=== PATIENT | male | born 1955 | race Caucasian/White ===

== ENCOUNTER 2017-01-19 09:22 | Inpatient (IN) | payer OTHER ==
[2017-01-19 10:32] VITALS: BMI 24.0
--- NOTE | 2017-01-19 13:29 | HP ---
CIWA Score - CIWA Score Nausea/Vomitin-No Nausea/No Vomiting Muscle Tremors: 4-Moderate,w/Arms Extend Anxiety: 4-Mod. Anxious/Guarded Agitation: 3 Paroxysmal Sweats: 1-Minimal Palms Moist Orientation: 0-Oriented Tacttile Disturbances: 0-None Auditory Disturbances: 0-None Visual Disturbances: 0-None Headache: 1-Very Mild CIWA-Ar Total Score: 13 Admission ROS BHS - HPI Chief Complaint: DETOX TX FOR ALCOHOL WITHDRAWAL SX Allergies/Adverse Reactions: Allergies Allergy/AdvReac Type Severity Reaction Status Date / Time No Known Allergies Allergy Verified 01/19/17 11:44 History of Present Illness: 43 Y/O H/M WITH A HX OF ALCOHOL DEPENDENCE SEEKING DETOX TX Exam Limitations: No Limitations - Ebola screening Have you traveled outside of the country in the last 21 days: No (N) Have you had contact with anyone from an Ebola affected area: No Have you been sick,other than usual withdrawal symptoms: No Do you have a fever: No - Review of Systems Constitutional: Loss of Appetite, Changes in sleep, Unintentional Wgt. Loss EENT: reports: Blurred Vision, Dental Problems (MISSING TEETH) Respiratory: reports: Shortness of Breath (ASTHMA), Wheezing Cardiac: reports: Lightheadedness GI: reports: No Symptoms Reported : reports: No Symptoms Reported Musculoskeletal: reports: No Symptoms Reported Integumentary: reports: No Symptoms Reported Neuro: reports: Headache, Tremors, Unsteady Gait Endocrine: reports: No Symptoms Reported Hematology: reports: No Symptoms Reported Psychiatric: reports: Orientated x3, Anxious, Depressed Other Systems: Reviewed and Negative Patient History - Patient Medical History Hx Asthma: Yes (MDI) Hx Chronic Obstructive Pulmonary Disease (COPD): No Hx Cardiac Disorders: No Hx Hypertension: No Hx Hypercholesterolemia: No HX Cerebrovascular Accident: No Hx Seizures: No Hx Diabetes: No Hx Gastrointestinal Disorders: No Hx Genitourinary Disorders: No Hx Sexually Transmitted Disorders: No (DENIES) Hx Renal Disease (ESRD): No Hx Thyroid Disease: No Hx Human Immunodeficiency Virus (HIV): No (NEGATIVE HX) Hx Hepatitis C: No Hx Depression: Yes (ON LEXAPRO 10 MG) Hx Suicide Attempt: No (DENIES) Hx Schizophrenia: No - Patient Surgical History Past Surgical History: No Hx Neurologic Surgery: No Hx Cataract Extraction: No Hx Cardiac Surgery: No Hx Lung Surgery: No Hx Breast Surgery: No Hx Breast Biopsy: No Hx Abdominal Surgery: No Hx Appendectomy: No Hx Cholecystectomy: No Hx Genitourinary Surgery: No Hx Orthopedic Surgery: No Anesthesia Reaction: No - PPD History Previous Implant?: Yes Documented Results: Positive w/o proof Implanted On Prior [facility] Admission?: No Results: CXR TBD PPD to be Administered?: No - Reproductive History Patient is a Female of Child Bearing Age (11 -55 yrs old): No (MALE) - Smoking Cessation Smoking history: Current every day smoker Have you smoked in the past 12 months: Yes Aproximately how many cigarettes per day: 20 Hx Chewing Tobacco Use: No Initiated information on smoking cessation: Yes 'Breaking Loose' booklet given: 01/19/17 - Substance & Tx. History Hx Alcohol Use: Yes (BEER/VODKA) Hx Substance Use: No (DENIES) Substance Use Type: Alcohol Hx Substance Use Treatment: Yes - Substances Abused Alcohol-beer/vodka Route: Oral Frequency: Daily Amount used: 4 (24 oz.)/4 pts. Age of first use: 15 Date of Last Use: 01/19/17 Family Disease History - Family Disease History Family History: Denies Admission Physical Exam BHS - Vital Signs Vital Signs: Vital Signs - 24 hr 01/19/17 10:30 Temperature 98.8 F Pulse Rate 100 H Respiratory 18 Rate Blood Pressure 138/87 - Physical General Appearance: Yes: Moderate Distress, Irritable, Anxious HEENTM: Yes: EOMI, Normocephalic, KENJI, Pharynx Normal Respiratory: Yes: Chest Non-Tender, Lungs Clear, Normal Breath Sounds, No Respiratory Distress Neck: Yes: No masses,lesions,Nodules, Supple, Trachea in good position Breast: Yes: Breast Exam Deferred Cardiology: Yes: Regular Rhythm, Regular Rate, S1, S2 Abdominal: Yes: Normal Bowel Sounds, Non Tender, Flat Genitourinary: Yes: Other (N/C) Back: Yes: Within Normal Limits Musculoskeletal: Yes: full range of Motion, Gait Steady Extremities: Yes: Normal Range of Motion, Non-Tender Neurological: Yes: park warden II-XII NML intact, Fully Oriented, Alert, Motor Strength 5/5 Integumentary: Yes: Dry, Warm Lymphatic: Yes: Within Normal Limits - Diagnostic (1) Alcohol dependence with uncomplicated withdrawal Current Visit: Yes Status: Acute (2) Asthma Current Visit: Yes Status: Acute Qualifiers: Asthma severity: mild Asthma persistence: unspecified Asthma complication type: uncomplicated Qualified Code(s): J45.909 - Unspecified asthma, uncomplicated Cleared for Admission BHS - Detox or Rehab [facility] Level of Care: Medically Managed Detox Regimen/Protocol: Librium BHS Breath Alcohol Content Breath Alcohol Content: 0.065 Urine Drug Screen - Results Drug Screen Negative: No Urine Drug Screen Results: BZO-Benzodiazepines
[2017-01-19] MEDS ORDERED: IBUPROFEN 400 MG TABLET (FP) PO PRN (13:36)
[2017-01-19] MEDS ORDERED: hydrOXYzine PAMOATE 25 MG CAPSULE (FP) PO PRN (13:36)
[2017-01-19] MEDS ORDERED: MAGNESIUM HYDROX 2400MG/30ML ORAL SUSPENSION 30 ML CUP PO PRN (13:36)
[2017-01-19] MEDS ORDERED: MAG HYDROX/AL HYDROX/SIMETH 30 ML UNIT-DOSE CUP PO PRN (13:36)
[2017-01-19] MEDS ORDERED: chlordiazePOXIDE HCL 25 MG CAPSULE PO PRN (13:36)
[2017-01-19] MEDS ORDERED: MENTHOL/PHENOL 1 EACH UD MM PRN (13:36)
[2017-01-19] MEDS ORDERED: guaiFENesin/D-METHORPHAN HB 10 ML UNIT-DOSE CUPS PO PRN (13:36)
[2017-01-19] MEDS ORDERED: ACETAMINOPHEN 325 MG TABLET (FP) PO PRN (13:36)
[2017-01-19] MEDS ORDERED: NICOTINE POLACRILEX 4 MG GUM BUC PRN (13:36)
[2017-01-19] MEDS ORDERED: P-EPHED 60MG/TRIPROLIDI 2.5MG TABLET PO PRN (13:36)
[2017-01-19] MEDS ORDERED: LOPERAMIDE HCL 2 MG CAPSULE PO PRN (13:36)
[2017-01-19] MEDS ORDERED: MAGNESIUM CITRATE 300 ML BOTTLE PO PRN (13:36)
[2017-01-19] MEDS ORDERED: ALBUTEROL SO4 18 GM HFA INHALER IH PRN (13:38)
[2017-01-19] MEDS ORDERED: chlordiazePOXIDE HCL 25 MG CAPSULE PO ONE (14:21)
[2017-01-19] MEDS: NICOTINE 21 MG/24 HOURS TOPICAL PATCH TD SCH (15:59)
[2017-01-19] MEDS: chlordiazePOXIDE HCL 25 MG CAPSULE PO SCH ×2 (17:15→22:15)
[2017-01-19 17:48] LABS: MCH 27.1 pg (25.7-33.7); MCHC 32.3 g/dl (32.0-35.9); MEAN CELL VOLUME 83.8 fl (80-96); MEAN PLT VOLUME 8.4 fl (7.5-11.1); PLATELET COUNT 266 K/MM3 (134-434); RDW 16.4 % (11.9-15.9); WHITE BLOOD COUNT 7.3 K/mm3 (4.0-10.0)
[2017-01-19 18:04] LABS: ALK PHOS 49 U/L (45-117); ANION GAP 13 (8-16); BILIRUBIN,TOTAL 0.8 mg/dL (0.2-1.0); CALCIUM 9.4 mg/dL (8.5-10.1); CO2 26 mmol/L (21-32); CREATININE 1.1 mg/dL (0.7-1.3); GLUCOSE,RANDOM 75 mg/dL (74-106); SGOT/AST 36 U/L (15-37); SGPT/ALT 33 U/L (12-78); TOT PROT 7.6 g/dl (6.4-8.2)
[2017-01-19 18:04] LABS: URINE APPEARANCE CLEAR; URINE BILIRUBIN NEGATIVE (NEGATIVE); URINE BLOOD NEGATIVE (NEGATIVE); URINE COLOR LTYELLOW; URINE GLUCOSE (UA) NEGATIVE (NEGATIVE); URINE KETONE NEGATIVE (NEGATIVE); URINE NITRITE NEGATIVE (NEGATIVE); URINE PROTEIN NEGATIVE (NEGATIVE); URINE UROBILINOGEN NEGATIVE mg/dL (0.2-1.0)
[2017-01-19 18:45] LABS: SICKLE CELL SCREEN NEGATIVE (NEGATIVE)
[2017-01-19 21:53] LABS: URINE LEUK ESTERASE Negative (NEGATIVE)
[2017-01-19] MEDS: THIAMINE HCL 100 MG TABLET (FP) PO SCH (22:15)
[2017-01-20] MEDS: chlordiazePOXIDE HCL 25 MG CAPSULE PO SCH ×4 (05:32→22:07)
--- NOTE | 2017-01-20 09:46 | EKG ---
Test Reason : Blood Pressure : / mmHG Vent. Rate : 083 BPM Atrial Rate : 083 BPM P-R Int : 146 ms QRS Dur : 080 ms QT Int : 352 ms P-R-T Axes : 063 017 039 degrees QTc Int : 413 ms NORMAL SINUS RHYTHM NORMAL ECG NO PREVIOUS ECGS AVAILABLE Confirmed by GAYE COOPER, DELL ([id number]) on 01/20/2017 9:46:22 AM Referred By: Confirmed By:DELL HUIZAR MD
[2017-01-20] MEDS ORDERED: PRENATAL VITAMINS W/ FOLIC ACID TABLET (FP) PO SCH (10:00)
[2017-01-20] MEDS ORDERED: ESCITALOPRAM OXALATE 10 MG TABLET (FP) PO SCH ×2 (10:00→13:45)
[2017-01-20] MEDS: NICOTINE 21 MG/24 HOURS TOPICAL PATCH TD SCH ×2 (10:02→10:36)
--- NOTE | 2017-01-20 10:35 | PN ---
[facility] CIWA - CIWA Score Nausea/Vomitin-No Nausea/No Vomiting Muscle Tremors: 4-Moderate,w/Arms Extend Anxiety: 4-Mod. Anxious/Guarded Agitation: 4-Moderately Restless Paroxysmal Sweats: 1-Minimal Palms Moist Orientation: 0-Oriented Tacttile Disturbances: 3-Moderate Itch/Numb/Burn Auditory Disturbances: 0-None Visual Disturbances: 0-None Headache: 0-None Present CIWA-Ar Total Score: 16 BHS Progress Note (SOAP) Subjective: ANXIETY,SWEATS,TREMORS. Objective: 01/20/17 10:34 Vital Signs Temperature 97.1 F L 01/20/17 09:48 Pulse Rate 84 01/20/17 09:48 Respiratory Rate 16 01/20/17 09:48 Blood Pressure 111/68 01/20/17 09:48 O2 Sat by Pulse Oximetry (%) Laboratory Last Values WBC 7.3 K/mm3 (4.0-10.0) 01/19/17 15:00 RBC 5.31 M/mm3 (4.00-5.60) 01/19/17 15:00 Hgb 14.4 GM/dL (11.7-16.9) 01/19/17 15:00 Hct 44.5 % (35.4-49) 01/19/17 15:00 MCV 83.8 fl (80-96) 01/19/17 15:00 MCH 27.1 pg (25.7-33.7) 01/19/17 15:00 MCHC 32.3 g/dl (32.0-35.9) 01/19/17 15:00 RDW 16.4 % (11.9-15.9) H 01/19/17 15:00 Plt Count 266 K/MM3 (134-434) 01/19/17 15:00 MPV 8.4 fl (7.5-11.1) 01/19/17 15:00 Sickle Cell Screen Negative (NEGATIVE) 01/19/17 15:00 Sodium 139 mmol/L (136-145) 01/19/17 15:00 Potassium 4.3 mmol/L (3.5-5.1) 01/19/17 15:00 Chloride 100 mmol/L (98-107) 01/19/17 15:00 Carbon Dioxide 26 mmol/L (21-32) 01/19/17 15:00 Anion Gap 13 (8-16) 01/19/17 15:00 BUN 10 mg/dL (7-18) 01/19/17 15:00 Creatinine 1.1 mg/dL (0.7-1.3) 01/19/17 15:00 Creat Clearance w eGFR > 60 (>60) 01/19/17 15:00 Random Glucose 75 mg/dL (74-106) 01/19/17 15:00 Calcium 9.4 mg/dL (8.5-10.1) 01/19/17 15:00 Total Bilirubin 0.8 mg/dL (0.2-1.0) 01/19/17 15:00 AST 36 U/L (15-37) 01/19/17 15:00 ALT 33 U/L (12-78) 01/19/17 15:00 Alkaline Phosphatase 49 U/L (45-117) 01/19/17 15:00 Total Protein 7.6 g/dl (6.4-8.2) 01/19/17 15:00 Albumin 4.0 g/dl (3.4-5.0) 01/19/17 15:00 Urine Color Ltyellow 01/19/17 15:30 Urine Appearance Clear 01/19/17 15:30 Urine pH 6.0 (5.0-8.0) 01/19/17 15:30 Ur Specific [place] 1.013 (1.001-1.035) 01/19/17 15:30 Urine Protein Negative (NEGATIVE) 01/19/17 15:30 Urine Glucose (UA) Negative (NEGATIVE) 01/19/17 15:30 Urine Ketones Negative (NEGATIVE) 01/19/17 15:30 Urine Blood Negative (NEGATIVE) 01/19/17 15:30 Urine Nitrite Negative (NEGATIVE) 01/19/17 15:30 Urine Bilirubin Negative (NEGATIVE) 01/19/17 15:30 Urine Urobilinogen Negative mg/dL (0.2-1.0) 01/19/17 15:30 Ur Leukocyte Esterase Negative (NEGATIVE) 01/19/17 15:30 RPR Titer Nonreactive (NONREACTIVE) 01/19/17 15:00 Assessment: 01/20/17 10:34 WITHDRAWAL SX Plan: CONTINUE DETOX
[2017-01-20] MEDS ORDERED: FLU VACCINE QUAD 60 MCG/0.5 ML (MDV 17-18) IM ONE (12:00)
--- NOTE | 2017-01-20 13:25 | CONSULT ---
[facility] Psychiatric Consult - Data Date of interview: 01/20/17 Admission source: [facility] Identifying data: First admission to [facility] for this 43 y/o male seeking detox treatment on for alcohol dependence.Patient is ,a father of two,domiciled and employed. Substance Abuse History: Confirmed by patient in this interview. Smoking history: Current every day smoker. Have you smoked in the past 12 months: Yes. Aproximately how many cigarettes per day: 20. Hx Chewing Tobacco Use: No. Initiated information on smoking cessation: Yes. 'Breaking Loose' booklet given : 01/19/17. - Substance & Tx. History. Hx Alcohol Use: Yes (BEER/VODKA). Hx Substance Use: No (DENIES). Substance Use Type: Alcohol. Hx Substance Use Treatment: Yes. - Substances Abused. Alcohol-beer/vodka. Route: Oral. Frequency: Daily. Amount used: 4 (24 oz.)/4 pts. Age of first use: 15. Date of Last Use: 01/19/17 Medical History: Bronchial asthma. Psychiatric History: Patient admits to a history of four psychiatric hospitalizations.Known to [email or web address] and [facility].Diagnosed with MDD and prescribed lexapro 10 mg/day (OPD care at [facility] mental health clinic).Mr Funk denies history of suicide attempts. Physical/Sexual Abuse/Trauma History: Patient denies. Additional Comment: Urine Drug Screen Results: BZO-Benzodiazepines.Noted. Mental Status Exam - Mental Status Exam Alert and Oriented to: Time, Place, Person Cognitive Function: Good Patient Appearance: Well Groomed Mood: Withdrawn, Hopeful, Euthymic Affect: Appropriate, Normal Range Patient Behavior: Fatigued, Cooperative Speech Pattern: Clear (in greek), Appropriate Voice Loudness: Normal Thought Process: Intact, Goal Oriented Thought Disorder: Not Present Hallucinations: Denies Suicidal Ideation: Denies Homicidal Ideation: Denies Insight/Judgement: Poor Sleep: Well Appetite: Good Muscle strength/Tone: Normal Gait/Station: Normal Psychiatric Findings - Problem List ([place] 1, 2,3) (1) Alcohol dependence with uncomplicated withdrawal Current Visit: Yes Status: Acute (2) Nicotine dependence Current Visit: Yes Status: Acute (3) Substance induced mood disorder Current Visit: Yes Status: Acute (4) Depressive disorder Current Visit: Yes Status: Chronic Comment: Self-report.On medications.Followed at [facility] OPD. - Initial Treatment Plan Initial Treatment Plan: Psychoeducation.Detoxification.Support.Lexapro 10 mg po daily.Side effects/benefits discussed with patient.He agrees with this careplan.Observation.
[2017-01-20] MEDS: THIAMINE HCL 100 MG TABLET (FP) PO SCH (22:07)
[2017-01-21] MEDS: chlordiazePOXIDE HCL 25 MG CAPSULE PO SCH (05:08)
[2017-01-21 08:59] VITALS: BP 107/70; PULSE 78; TEMP 95.8
--- NOTE | 2017-01-21 12:50 | DS ---
[facility] Detox Discharge Summary Admission Date: 01/19/17 Discharge Date: 01/21/17 - History Present History: Alcohol Dependence Additional Comments: PATIENT HAD PERSONAL ISSUE TO DEAL WITH AND DOES NOT WISH TO STAY TO COMPLETE DETOX REGIMEN. RISKS OF LEAVING DETOX UNIT PRIOR TO COMPLETION OF DETOX REGIMEN EXPLAINED TO PATIENT. PATIENT ADVISED TO GO IMMEDIATELY TO NEAREST ER SHOULD ANY INTOLERABLE DETOX SYMPTOMS DEVELOP AT ANY TIME. PATIENT LEFT DETOX UNIT IN STABLE MEDICAL CONDITION. Pertinent Past History: Depression, Nicotine Dependence, Asthma. - Physical Exam Results Vital Signs: Vital Signs Temperature 95.8 F L 01/21/17 08:59 Pulse Rate 78 01/21/17 08:59 Respiratory Rate 18 01/21/17 08:59 Blood Pressure 107/70 01/21/17 08:59 O2 Sat by Pulse Oximetry (%) Pertinent Admission Physical Exam Findings: WITHDRAWAL SYMPTOMS. Laboratory Tests 01/19/17 01/19/17 01/19/17 15:00 15:00 15:00 WBC 7.3 RBC 5.31 Hgb 14.4 Hct 44.5 MCV 83.8 MCH 27.1 MCHC 32.3 RDW 16.4 H Plt Count 266 MPV 8.4 Sickle Cell Screen Negative Sodium 139 Potassium 4.3 Chloride 100 Carbon Dioxide 26 Anion Gap 13 BUN 10 Creatinine 1.1 Creat Clearance w eGFR > 60 Random Glucose 75 Calcium 9.4 Total Bilirubin 0.8 AST 36 ALT 33 Alkaline Phosphatase 49 Total Protein 7.6 Albumin 4.0 Urine Color Urine Appearance Urine pH Ur Specific [place] Urine Protein Urine Glucose (UA) Urine Ketones Urine Blood Urine Nitrite Urine Bilirubin Urine Urobilinogen Ur Leukocyte Esterase RPR Titer Nonreactive 01/19/17 15:30 WBC RBC Hgb Hct MCV MCH MCHC RDW Plt Count MPV Sickle Cell Screen Sodium Potassium Chloride Carbon Dioxide Anion Gap BUN Creatinine Creat Clearance w eGFR Random Glucose Calcium Total Bilirubin AST ALT Alkaline Phosphatase Total Protein Albumin Urine Color Ltyellow Urine Appearance Clear Urine pH 6.0 Ur Specific [place] 1.013 Urine Protein Negative Urine Glucose (UA) Negative Urine Ketones Negative Urine Blood Negative Urine Nitrite Negative Urine Bilirubin Negative Urine Urobilinogen Negative Ur Leukocyte Esterase Negative RPR Titer LABS NOTED. - Treatment Hospital Course: Detoxed Safely - Medication Discharge Medications: Ambulatory Orders Albuterol Sulfate Inhaler - [Ventolin Hfa Inhaler -] 2 inh PO Q4H PRN 01/19/17 Escitalopram Oxalate [Lexapro -] 10 mg PO DAILY 01/19/17 Escitalopram Oxalate [Lexapro -] 10 mg PO DAILY #30 tablet 01/20/17 - Diagnosis (1) Alcohol dependence with uncomplicated withdrawal Status: Acute (2) Asthma Status: Chronic Qualifiers: Asthma severity: mild Asthma persistence: unspecified Asthma complication type: uncomplicated Qualified Code(s): J45.909 - Unspecified asthma, uncomplicated (3) Nicotine dependence Status: Acute Qualifiers: Nicotine product type: cigarettes Substance use status: uncomplicated Qualified Code(s): F17.210 - Nicotine dependence, cigarettes, uncomplicated (4) Substance induced mood disorder Status: Acute (5) Depressive disorder Status: Chronic - AMA Did Patient Leave Against Medical Advice: Yes (PT HAD PERSONAL ISSUE AND DID NOT WISH TO STAY TO COMPLETE DETOX REGIMEN.)
[2017-01-21] MEDS ORDERED: chlordiazePOXIDE 5 MG CAPSULE PO SCH (17:00)
[2017-01-22] MEDS ORDERED: chlordiazePOXIDE HCL 10 MG CAPSULE PO SCH (17:00)
== END 2017-01-21 09:15 | disposition left against medical advice (07) | DRG 770 ==
LOC: YASAS 09:22 → EDBD 14:18 → Y3N 14:18
PROVIDERS: ADMIT Internal Medicine; ATTEND Internal Medicine
PROC: HZ2ZZZZ Detoxification Services for Substance Abuse Treatment (ICD-10-PCS; principal; 2017-01-19)
DX: F10.230 Alcohol dependence with withdrawal, uncomplicated (principal); F17.200 Nicotine dependence, unspecified, uncomplicated; F19.94 Other psychoactive substance use, unspecified with psychoactive substance-induced mood disorder; F32.9 Major depressive disorder, single episode, unspecified; J45.909 Unspecified asthma, uncomplicated
CPT/HCPCS: 36415; 71020-TC; 80053; 81003; 85027; 85660; 86593; 93005; 93010